=== PATIENT | female | born 1975 | race Caucasian/White ===

== ENCOUNTER 2022-07-23 13:25 | Outpatient (CLI) | payer BC, SELFPAY ==
--- NOTE | ~2022-07-23 | MR_ITS ---
EXAMINATION: MR lumbar spine wo/w con DATE: 07/23/2022 15:19 INDICATION: Prior spine surgery presenting with low back pain and left leg weakness TECHNIQUE: Magnetic resonance imaging (MRI) of the lumbar spine was performed without and with 18 mL Multihance intravenous contrast. Sequences included sagittal T2-weighted FSE, sagittal T2-weighted FS FSE, and sagittal and axial T1-weighted FSE. Postcontrast sequences included axial T2-weighted FSE, sagittal T1-weighted FSE, and axial and sagittal T1-weighted FS FSE. COMPARISON: None FINDINGS: Alignment is normal. Vertebral body heights are normal. Normal marrow signal. Disc desiccation an an nular fissure but without significant disc height loss at L4-L5. Additional disc desiccation with mod erate disc height loss and annular fissure at L5-S1. The conus medullaris terminates at L1. There is normal signal in the caudal spinal cord. Mild scarring in the soft tissues posterior along the left s rodney of the spinous processes of L4 and L5 where there is been prior L4-L5 and L5-S1 hemilaminotomies. Paraspinal soft tissues are otherwise unremarkable. No abnormally enhancing lesions identified. The following disc levels are specifically discussed: T12-L1 through L2-L3: The disc does not extend beyond the endplate margin. There is mild bilateral fa cet joint osteoarthritis. There is no neural foraminal stenosis. There is no central canal stenosis. L3-L4: Disc is minimally bulging. There is mild bilateral facet joint osteoarthritis. There is mild l eft neural foraminal stenosis. There is no central canal stenosis. L4-L5: Disc is bulging with superimposed central annular fissure. There is mild bilateral facet joint osteoarthritis. There is mild bilateral neural foraminal stenosis. There is minimal central canal st enosis. L5-S1: Disc is bulging with superimposed annular fissure and small central disc extrusion with disc m aterial extending a few millimeters cephalad and caudal to the level of the endplates. There is mild bilateral facet joint osteoarthritis. There is moderate left and mild to moderate right neural forami nal stenosis. There is mild central canal stenosis along with mild narrowing of the left lateral rece ss. IMPRESSION: 1. Lumbar spondylosis, moderate at L5-S1, mild at L4-5 and minimal in the more cephalad lumbar spine. 2. Postoperative change of prior left-sided L4-L5 and L5-S1 hemilaminotomies. Reviewed, dictated and finalized at location A.
--- NOTE | ~2022-07-23 | MR_ITS ---
EXAMINATION: MR cervical spine wo con DATE: 07/23/2022 15:16 INDICATION: Neck pain. Right arm numbness. TECHNIQUE: Magnetic resonance imaging (MRI) of the cervical spine was performed without intravenous c ontrast. Sequences included sagittal T2-weighted FSE, sagittal T2-weighted FS FSE, sagittal T1-weight ed FSE, axial MERGE, and axial T2-weighted FSE. COMPARISON: None FINDINGS: There is hypolordosis of cervical spine. Vertebral body heights are normal. There is mildly decreased disc height at C6-C7. The spinal cord signal intensity is normal. The following disc level s are specifically discussed: C2-C3: The disc does not extend beyond the endplate margin. There is no uncovertebral joint osteoarth ritis. There is mild bilateral facet joint osteoarthritis. There is no neural foraminal stenosis. The re is no central canal stenosis. C3-C4: The disc is bulging. There is mild left uncovertebral joint osteoarthritis. There is mild bila teral facet joint osteoarthritis. There is mild left neural foraminal stenosis. There is no central c anal stenosis. C4-C5: The disc is bulging. There is mild bilateral uncovertebral joint osteoarthritis. There is no f acet joint osteoarthritis. There is no neural foraminal stenosis. There is mild central canal stenosi s. C5-C6: The disc is bulging. There is moderate and severe left uncovertebral joint osteoarthritis. The re is no facet joint osteoarthritis. There is mild bilateral neural foraminal stenosis. There is no c entral canal stenosis. C6-C7: There is a central extrusion. There is moderate bilateral uncovertebral joint osteoarthritis. There is mild bilateral facet joint osteoarthritis. There is moderate right and mild left neural fora danilo stenosis. There is moderate central canal stenosis with ventral and dorsal indentation of spina l cord. C7-T1: The disc does not extend beyond the endplate margin. There is no uncovertebral joint osteoarth ritis. There is severe right and moderate left facet joint osteoarthritis. There is mild bilateral ne ural foraminal stenosis. There is no central canal stenosis. IMPRESSION: 1. Moderate cervical spondylosis. Reviewed, dictated and finalized at location A.
== END 2022-07-23 13:26 | disposition home or self-care (01) ==
PROVIDERS: PCP Family Medicine; Visit Provider Neurological Surgery
DX: M54.9 Dorsalgia, unspecified (principal); M54.2 Cervicalgia; M47.816 Spondylosis without myelopathy or radiculopathy, lumbar region; Z98.890 Other specified postprocedural states; M47.812 Spondylosis without myelopathy or radiculopathy, cervical region
CPT/HCPCS: 72141; 72158; A9577

== ENCOUNTER → 2022-09-11 09:03 | Outpatient (CLI) | payer BC, SELFPAY ==
--- NOTE | ~2022-09-11 | MR_ITS ---
EXAMINATION: MR thoracic spine wo con DATE: 09/11/2022 09:38 INDICATION: Back pain. TECHNIQUE: Magnetic resonance imaging (MRI) of the thoracic spine was performed without intravenous c ontrast. Sagittal localizer T1-weighted FSE of the cervical spine was obtained. Thoracic spine sequen milly included sagittal T2-weighted FSE, sagittal T1-weighted FSE, sagittal T2-weighted FS FSE, and axi al T2-weighted FSE. COMPARISON: None FINDINGS: There is 7 degrees levocurvature of upper thoracic spine. Vertebral body heights and interv ertebral disc heights are normal. The discs do not extend beyond the endplate margins. There is multi level facet joint osteoarthritis, severe on the right from T2-3 through T4-T5. On the right, there is mild neural foraminal stenosis from T1-T2 through T4-T5. On the left, there is mild neural foraminal stenosis at T1-T2. No central canal stenosis. The spinal cord signal intensity is normal. IMPRESSION: 1. Mild thoracic spondylosis. Reviewed, dictated and finalized at location A.
== END ==
PROVIDERS: PCP Family Medicine; Visit Provider Neurological Surgery
DX: M47.814 Spondylosis without myelopathy or radiculopathy, thoracic region (principal); M48.04 Spinal stenosis, thoracic region
CPT/HCPCS: 72146

== ENCOUNTER 2022-10-14 16:11 | Outpatient (CLI) | payer BC, SELFPAY ==
--- NOTE | ~2022-10-14 | US_ITS ---
EXAMINATION: US thyroid DATE: 10/14/2022 16:45 INDICATION: Goiter. TECHNIQUE: Multiple ultrasound images of the thyroid were obtained. COMPARISON: None. FINDINGS: The right thyroid lobe measures 4.2 x 1.3 x 1.8 cm. The left thyroid lobe measures 3.8 x 1.2 x 1.7 c m. There is normal echotexture and echogenicity throughout the thyroid gland. No discrete nodules id entified. Normal vascular flow is present. IMPRESSION: 1. Normal thyroid. Reviewed, dictated and finalized at location A. [employer] IMPRESSION: 1. Normal thyroid.
== END 2022-10-14 16:12 | disposition home or self-care (01) ==
PROVIDERS: PCP Family Medicine; Visit Provider Nurse Practitioner
DX: E04.9 Nontoxic goiter, unspecified (principal)
CPT/HCPCS: 76536